=== PATIENT | male | born 1970 | race Caucasian/White ===

== ENCOUNTER 2017-07-28 14:52 | Emergency (ER) | payer BC ==
[2017-07-28] MEDS ORDERED: Lidocaine 1% 30 ML SDV INJECT ONE (15:10)
[2017-07-28 15:16] VITALS: BP 141/90
[2017-07-28] MEDS ORDERED: Diphtheria,Pertussis(Acell),Tetanus Vaccine 0.5 ML Syringe IM ONE (15:22)
--- NOTE | 2017-07-28 15:47 | EDM.PDOC ---
ED HPI GENERAL MEDICAL PROBLEM - General Chief Complaint: Laceration Stated Complaint: CUT IN LEG Time Seen by Provider: 07/28/17 15:09 Source of Information: Reports: Patient History Limitations: Reports: No Limitations - History of Present Illness INITIAL COMMENTS - FREE TEXT/NARRATIVE: Pt. sustained a superficial laceration to mid-portion of L lower leg. States that his tetanus is not up to date. He denies injury other than what is isolated to his left lower leg. 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 Onset: Today Onset Date: 07/28/17 Onset Time: 15:25 Location: Reports: Lower Extremity, Left Severity: Mild Left Lower Leg Pain Score (Numeric/FACES): 3 - Related Data Allergies Allergy/AdvReac Type Severity Reaction Status Date / Time lisinopril Allergy Swelling Verified 07/28/17 15:02 morphine Allergy Swelling Verified 07/28/17 15:02 Home Meds: Home Meds Cyanocobalamin (Vitamin B12) [Vitamin B12] 1,000 mg IM Q30D 02/08/14 [History] Insulin Detemir [Levemir] 24 unit SQ BEDTIME 02/08/14 [History] Insulin Lispro [Humalog] 4 unit SQ ASDIRECTED 02/08/14 [History] azaTHIOprine [Imuran] 100 mg PO BID 02/08/14 [History] predniSONE [Prednisone] 20 mg PO DAILY 02/08/14 [History] Calcium Citrate 600 mg PO TID 06/16/17 [History] Cholecalciferol (Vitamin D3) [Vitamin D3] 1,000 unit PO DAILY 06/16/17 [History] Fluconazole [Diflucan] 100 mg PO Q2D 06/16/17 [History] Immun Glob G (IgG)/Gly/Iga 50+ [Gamunex-C] 10 gm IJ Q21D 06/16/17 [History] Lidocaine 2% [Xylocaine 2% Viscous] 10 ml PO Q4H PRN 06/16/17 [History] Multivitamin-Min/Iron/FA/Vit K [Multi-Day Plus Minerals Tablet] 1 each PO DAILY 06/16/17 [History] Nystatin 100,000 unit PO QID 06/16/17 [History] Potassium Citrate [Potassium Citrate ER] 40 meq PO QID 06/16/17 [History] Pyridoxine HCl 50 mg PO DAILY 06/16/17 [History] Sildenafil [Viagra] 1 tab PO ASDIRECTED PRN 06/16/17 [History] Sulfamethoxazole/Trimethoprim [Bactrim Ds Tablet] 1 each PO DAILY 06/16/17 [ History] Tacrolimus [Prograf] 2 mg PO BID 06/16/17 [History] Thiamine HCl 100 mg PO TID 06/16/17 [History] Thyroid,Pork [Nature-Throid] 16.25 mg PO BID 06/16/17 [History] Triamcinolone Acetonide [Nasacort] 1 spray NS BID 06/16/17 [History] Vitamin A Palmitate [Aquasol A] 50,000 unit IM Q7D 06/16/17 [History] oxyCODONE 10 mg PO Q4H PRN 06/16/17 [History] Past Medical History Cardiovascular History: Reports: Hypertension Gastrointestinal History: Reports: Chronic Diarrhea, Other (See Below) Other Gastrointestinal History: Autoimmune enteropathy, abdominal bloating, weight loss, malnutrition Genitourinary History: Reports: Other (See Below) Other Genitourinary History: hydroceles Psychiatric History: Reports: Depression Endocrine/Metabolic History: Reports: Diabetes, Type I, Vitamin D Deficiency Hematologic History: Reports: Idiopathic Thrombocytopenia Dermatologic History: Reports: Other (See Below) Other Dermatologic History: skin lesion Social & Family History - Tobacco Use Smoking Status *Q: Never Smoker - Caffeine Use Caffeine Use: Reports: None - Alcohol Use Days Per Week of Alcohol Use: 0 - Recreational Drug Use Recreational Drug Use: No ED ROS GENERAL - Review of Systems Review Of Systems: See Below Musculoskeletal: Reports: Leg Pain (secondary to laceration of left anterior lower leg) ED EXAM, SKIN/RASH Exam: See Below Extremities: Normal Range of Motion, Normal Capillary Refill, Other (3 cm vertical superficial laceration to left lower leg) ED SKIN PROCEDURES - Laceration/Wound Repair Left Lower Leg Lac/Wound length In cm: 3 Appearance: Superficial Distal NVT: Neuro & Vascular Intact Anesthetic Type: Local Local Anesthesia - Lidocaine (Xylocaine): 1% Plain Local Anesthetic Volume: Other (8 ml) Skin Prep: Chlorhexidine (Hibiciens) Saline Irrigation (cc's): 1,000 Exploration/Debridement/Repair: Wound Explored, Explored to Base, No Foreign Material Found Closed with: Sutures Suture Size: 3-0 # of Sutures: 4 Suture Type: Nylon, Interrupted, Simple Tetanus Status Addressed: Yes Course - Vital Signs Last Recorded V/S: Last Vital Signs Temp 36.2 C 07/28/17 14:53 Pulse 78 07/28/17 14:53 Resp 16 07/28/17 14:53 BP 141/90 H 07/28/17 14:53 Pulse Ox - Orders/Labs/Meds Orders: Active Orders 24 hr Category Date Time Status Vaccines to be Administered [RC] PER UNIT ROUTINE Care 07/28/17 15:22 Active Meds: Medications Discontinued Medications Generic Name Dose Route Start Last Admin Trade Name Fredonald PRN Reason Stop Dose Admin Diphtheria/Tetanus/Acell Pertussis 0.5 ml 07/28/17 15:22 07/28/17 15:40 Adacel IM 07/28/17 15:23 0.5 ml .ONCE ONE Administration Lidocaine HCl 30 ml 07/28/17 15:10 07/28/17 15:20 Xylocaine-Mpf 1% INJECT 07/28/17 15:11 9 ml ONETIME ONE Administration Departure - Departure Time of Disposition: 15:51 Disposition: Home, Self-Care 01 Condition: Good Clinical Impression: Laceration - Discharge Information Instructions: Laceration Care, Adult Referrals: Evie Sinclair PA-C [Primary Care Provider] - Forms: ED Department Discharge Additional Instructions: Keep dry for 48 hours. Keep open to air as much as possible. Cover if you anticipate the area getting dirty. Return if redness, swelling, or discharge from the area. Sutures out in 14 days. - Problem List & Annotations (1) Laceration SNOMED Code(s): 404741566 Code(s): [id number] - Status: Acute Current Visit: Yes - My Orders Last 24 Hours: My Active Orders 07/28/17 15:22 Vaccines to be Administered [RC] PER UNIT ROUTINE - Assessment/Plan Last 24 Hours: My Active Orders 07/28/17 15:22 Vaccines to be Administered [RC] PER UNIT ROUTINE Assessment:: 3 cm superficial laceration left lower leg Plan: Keep dry for 48 hours. Keep open to air as much as possible. Cover if you anticipate the area getting dirty. Sutures out in 48 hours. Return if redness, swelling or discharge from the area.
== END 2017-07-28 15:47 | disposition home or self-care (01) ==
LOC: VM.ED 14:52
DX: S81.812A Laceration without foreign body, left lower leg, initial encounter (principal); I10 Essential (primary) hypertension; E10.9 Type 1 diabetes mellitus without complications; F32.9 Major depressive disorder, single episode, unspecified; Z79.4 Long term (current) use of insulin; Z79.899 Other long term (current) drug therapy; Z88.5 Allergy status to narcotic agent; Z88.8 Allergy status to other drugs, medicaments and biological substances; Z23 Encounter for immunization; W45.8XXA Other foreign body or object entering through skin, initial encounter
CPT/HCPCS: 12002; 90715; 99283